=== PATIENT | female | born 1950 | race Caucasian/White ===

== ENCOUNTER 2023-07-07 09:18 | Outpatient (AMB) | payer BC, SELFPAY ==
[2023-07-07 09:23] VITALS: BP 128/72; PULSE 59; O2SAT 97; BMI 38.0
--- NOTE | 2023-07-07 09:23 | A.OFFVIS_ITS ---
Intake Vital Signs 07/07/23 09:23 Height 5 ft 4 in Weight 221 lb 6 oz BMI 38.0 BP 128/72 Blood Pressure Location Rt brachial Position Sitting Pulse 59 Pulse Source Pulse Oximeter Pulse Oximetry (%) 97 Oxygen Delivery Method Room Air Intake Visit Reasons: NPV/ Dizziness-LVM Intake Note: Pt presents as a NPV for Dizziness Planning Coordinator Required: No Allergies Sulfa (Sulfonamide Antibiotics) Allergy (Unknown, Verified 07/07/23 09:29) Redness of Skin Medication List - Last Reconciled 07/07/23 by Jasmin Sandoval MD aspirin (Adult Low Dose Aspirin) 81 mg PO DAILY atorvastatin 20 mg PO DAILY gentamicin 0.1% topical DAILY glipizide 5 mg PO BID hydrochlorothiazide 12.5 mg PO DAILY lisinopril 20 mg PO DAILY metformin 500 mg PO BID mupirocin 2% topical DAILY pioglitazone (Actos) 15 mg PO DAILY timolol maleate 0.5% 0 drps ophthalmic (eye) HPI HPI Comments History of Present Illness Details 72y/o female comes for evaluation of gait and balance issues. she was seen by ENT for dizziness and BPV was ruled out. SHe has had chronic gait issues but worse in the past 5 months.She says she does not feel strong or comfortable walking. she has been using cane for past 5 mths she feels off balance and has had a few falls.3 months ago she had a fall at the woundcare clinic and at home. She has chronic venous issues in her legs with ? lymphedema. ABout 1 year ago she started having leg swelling and developed ulcers. she had a small dog bite ( nip) she developed ulcers since then she goes to wound care clinic for cleaning and antibiotics.she was seen by vascular -had venous ultrasound- waiting for results. she has back pain on and off. No neck pain . [facility] Medical History (Updated 07/07/23 @ 10:04 by Jasmin Sandoval MD) Diabetes Dizziness HTN (hypertension) Hyperlipidemia Multifactorial gait disorder Sensorineural hearing loss Venous ulcers of both lower extremities Surgical History History of hip surgery S/P cubital tunnel release Family History Father Cancer Mother Heart disease Social History Alcohol intake: never Patient Tobacco Use Status: Former Tobacco user Use of substances other than those prescribed or required for medical reasons: No Physical Exam Vital Signs: Last Vital Signs Pulse 59 07/07/23 09:23 BP 128/72 07/07/23 09:23 Pulse Ox 97 07/07/23 09:23 Oxygen Delivery Method Room Air 07/07/23 09:23 BMI result Body Mass Index 38.0 Const General: cooperative, healthy appearing and comfortable Nutritional Appearance: obese Orientation/consciousness: patient oriented x3 Eyes Pupils: Equal, round and reactive pupils present Neck Neck: Yes no meningeal signs Neuro Other: LE bilaterally swollen up to knee General: patient oriented x3, gait normal, tone normal, moves all extremities, no meningeal signs and no focal motor deficits Cranial nerves: Yes Facial sensation intact/muscles of mastication intact, Yes Equal, round and reactive pupils present, Yes Bilaterally intact EOM present, Yes Nystagmus not present, Yes Normal facial strength present, Yes Midline tongue present and Yes Symmetric palate elevation present Cognition (Neuro): normal cognition Gait exam (Neuro): Antalgic gait present Motor exam (neuro): 5/5 motor strength present throughout and Normal motor muscle tone present throughout Deep tendon reflexes (DTR's): Right triceps reflex intensity grade: 1+, Left triceps reflex intensity grade: 1+, Rt Biceps (C5, C6): 1+, Left biceps reflex intensity grade: 1+, Right brachioradialis reflex intensity grade: 1+, Left brachioradialis reflex intensity grade: 1+, Right patellar reflex intensity grade: 1+ and Left patellar reflex intensity grade: 0 Coordination: [id number] test normal Assessment & Plan Assessment & Plan (1) Multifactorial gait disorder: Comment: musculoskeletal, venous ulcers, ? diabetic neuropathy, deconditioning Code(s): R26.89 - Other abnormalities of gait and mobility Plan I will refer her for PT F/u vascular wound care clinic Coding Level of Care Code New Pt Level 4 (02376) Diagnoses Multifactorial gait disorder R26.89
== END 2023-07-07 10:04 | disposition home or self-care (01) ==
PROVIDERS: Visit Provider Psychiatry & Neurology Neurology
DX: R26.89 Other abnormalities of gait and mobility (principal)
CPT/HCPCS: 99204

== ENCOUNTER → 2023-07-07 09:18 | Outpatient (BNVA) | payer BC, SELFPAY | PROVIDERS: Visit Provider Psychiatry & Neurology Neurology ==